=== PATIENT | male | born 1975 | race Caucasian/White ===

== ENCOUNTER 2019-02-09 18:33 | Emergency (ER) | payer OTHER ==
[2019-02-09 18:51] VITALS: RESP 18
[2019-02-09] MEDS ORDERED: DIPH,PERTUS(ACELL)TETVAC-LF 0.5 ML VIAL IM ONE (19:05)
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
[2019-02-09 19:47] LABS: Basophils % (A) 0 %; Eosinophils # (A) 0.1 k/uL (0-0.7); Eosinophils % (A) 1 %; HCT 38.8 % (39.0-53.0); HGB 12.7 gm/dL (13.0-17.5); Lymphocytes % (A) 16 %; MCHC 32.8 g/dL (31.0-37.0); MCV 91.5 fL (80.0-100.0); Monocytes # (A) 0.5 k/uL (0-1.0); Monocytes % (A) 4 %; Neutrophils # (A) 9.6 k/uL (1.3-7.7); Neutrophils % (A) 78 %; Platelet Count 260 k/uL (150-450); RBC 4.24 m/uL (4.30-5.90); RDW 15.9 % (11.5-15.5); WBC 12.4 k/uL (3.8-10.6)
[2019-02-09 19:54] LABS: INR 0.9 (<1.2); Partial Thromboplastin Time 25.4 sec (22.0-30.0); Prothrombin Time 9.9 sec (9.0-12.0)
[2019-02-09 20:03] LABS: ALT 27 U/L (21-72); AST 55 U/L (17-59); African American GFR (CKD) >90 (>60 ml/min/1.73 sqM); Albumin 4.7 g/dL (3.5-5.0); Alkaline Phosphatase 68 U/L (38-126); Anion Gap 14 mmol/L; Blood Urea Nitrogen 10 mg/dL (9-20); Calcium 9.5 mg/dL (8.4-10.2); Carbon Dioxide 18 mmol/L (22-30); Chloride 111 mmol/L (98-107); Glucose 84 mg/dL (74-99); Potassium 4.1 mmol/L (3.5-5.1); Sodium 143 mmol/L (137-145); Total Bilirubin 0.4 mg/dL (0.2-1.3); Total Protein 7.4 g/dL (6.3-8.2)
[2019-02-09 20:13] LABS: Alcohol 138 mg/dL
--- NOTE | 2019-02-09 20:24 | XR ---
EXAMINATION TYPE: XR forearm LT DATE OF EXAM: 02/09/2019 COMPARISON: NONE HISTORY: Pain TECHNIQUE: 2 views FINDINGS: Elbow joint appears intact. Wrist joint appears anatomic. I see no fracture nor dislocation . There is no sign of elbow joint effusion. There is 3 mm calcification anterior to the proximal carp us on the lateral view of the could relate to an old injury. IMPRESSION: Negative left forearm exam.
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
--- NOTE | 2019-02-09 20:25 | XR ---
EXAMINATION TYPE: XR chest 1V portable DATE OF EXAM: 02/09/2019 COMPARISON: NONE HISTORY: Pain TECHNIQUE: Single frontal view of the chest is obtained. FINDINGS: Heart and mediastinum are normal. Lungs are clear. Diaphragm is normal. Bony thorax is int act. There is 5 mm calcified granuloma in the left lower lobe. There is no sign of pneumothorax. IMPRESSION: No active cardiopulmonary disease. Normal heart.
--- NOTE | 2019-02-09 20:26 | XR ---
EXAMINATION TYPE: XR tibia fibula LT DATE OF EXAM: 02/09/2019 COMPARISON: NONE HISTORY: Pain. TECHNIQUE: 4 views FINDINGS: Tibia and fibula appear intact. I see no fracture nor dislocation. IMPRESSION: Negative left tibia and fibula exam.
--- NOTE | 2019-02-09 20:27 | XR ---
EXAMINATION TYPE: XR pelvis AP view DATE OF EXAM: 02/09/2019 COMPARISON: NONE HISTORY: Pain TECHNIQUE: Single view FINDINGS: Pelvic ring is intact. Proximal femurs and hip joints appear normal. Sacroiliac joints appe ar normal. IMPRESSION: Normal pelvis.
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
[2019-02-09] MEDS ORDERED: MORPHINE SULFATE 4 MG/ML SYRINGE IVP STA (21:48)
[2019-02-09] MEDS ORDERED: KETOROLAC 30 MG/ML 1 ML VIAL IVP STA (21:48)
[2019-02-09] MEDS ORDERED: LIDOCAINE 1% INJ 10MG/ML (20 ML MDV) SQ ONE ×2 (21:49→22:54)
[2019-02-09 22:22] LABS: Amphetamine Screen,Urine Not Detected (NotDetected); Barbiturate Screen,Urine Not Detected (NotDetected); Benzodiazepines Screen,Urine Not Detected (NotDetected); Cocaine Screen,Urine Not Detected (NotDetected); Methadone Screen, Urine Not Detected (NotDetected); Opiate Screen,Urine Not Detected (NotDetected); Oxycodone Screen, Urine Not Detected (NotDetected); Phencyclidine Screen,Urine Not Detected (NotDetected); Tricyclic Antidepressant,Urine Not Detected (NotDetected); Urn Cannabinoid Scrn Detected (NotDetected)
[2019-02-09 22:34] LABS: Appearance,Urine Clear (Clear); Bilirubin,Urine Negative (Negative); Blood,Urine Negative (Negative); Color,Urine Light Yellow; Glucose,Urine (UA) Negative (Negative); Ketones,Urine Trace (Negative); Leukocyte Esterase,Urine Negative (Negative); Nitrite,Urine Negative (Negative); Protein,Urine Negative (Negative); Specific Gravity,Urine 1.011 (1.001-1.035); Urobilinogen,Urine <2.0 mg/dL (<2.0)
[2019-02-09 23:19] VITALS: BP 120/79; PULSE 67; TEMP 99.3
== END 2019-02-09 23:48 | disposition home or self-care (01) ==
LOC: EC 18:33
DX: S01.01XA Laceration without foreign body of scalp, initial encounter (principal); S05.42XA Penetrating wound of orbit with or without foreign body, left eye, initial encounter; S01.81XA Laceration without foreign body of other part of head, initial encounter; S50.311A Abrasion of right elbow, initial encounter; S60.512A Abrasion of left hand, initial encounter; S60.511A Abrasion of right hand, initial encounter; S80.211A Abrasion, right knee, initial encounter; S80.812A Abrasion, left lower leg, initial encounter; F17.200 Nicotine dependence, unspecified, uncomplicated; Z53.8 Procedure and treatment not carried out for other reasons; V19.9XXA Pedal cyclist (driver) (passenger) injured in unspecified traffic accident, initial encounter
CPT/HCPCS: 36415; 86900; 86901; 80053; 84484; 85025; 85610; 85730; 86850; 81003; 80306; 80320; 72170; 73090; 73590; 73562; 71045; 72125; 70486; 70450; 71260; 74177; 99284; 12001; 12013; 96374; 96375; J2270; J2001; J1885; Q9967

== ENCOUNTER 2022-09-07 11:46 | Emergency (ER) | payer OTHER ==
[2022-09-07 11:50] VITALS: TEMP 97.8
--- NOTE | 2022-09-07 13:27 | ED ---
Eye Problem HPI - General Chief complaint: Eye Problems Stated complaint: vision issues Time Seen by Provider: 09/07/22 12:50 Source: patient, family Mode of arrival: ambulatory - History of Present Illness Initial comments: 37-year-old male with a history of smoking occasionally EtOH use appendectomy in the past who presents with complaints of right eye problems. He states he started about a month ago with a 10.0 central vision loss in his right eye he states this is not progress where he really can't see out of his right eye. He does state it onset he had a pinpoint central vision loss he still has that right now he also states he has a white haziness to the rest of his right eye nothing out of his left eye. He had some lightheadedness and dizziness when he stands up he thinks secondary to trying to accommodate for visual loss he states he feels like there may be some pressure behind his eye no overt headache no fevers chills nausea vomiting sweats no palpitations - Related Data Previous Rx's Medication Instructions Recorded Cephalexin [Keflex] 500 mg PO Q12HR #20 cap 02/09/19 HYDROcodone/APAP 5-325MG [[place] 1 tab PO Q6HR PRN #12 tab 02/09/19 5-325] Ibuprofen [Motrin] 600 mg PO Q8HR PRN #24 tab 02/09/19 Allergies Allergy/AdvReac Type Severity Reaction Status Date / Time No Known Allergies Allergy Verified 09/07/22 11:50 Review of Systems ROS Statement: Those systems with pertinent positive or pertinent negative responses have been documented in the HPI. ROS Other: All systems not noted in ROS Statement are negative. Past Medical History Past Medical History: No Reported History History of Any Multi-Drug Resistant Organisms: None Reported Past Surgical History: Appendectomy Past Psychological History: No Psychological Hx Reported Smoking Status: Current every day smoker Past Alcohol Use History: Occasional Past Drug Use History: Marijuana General Exam - General Exam Comments Initial Comments: This is a well-developed well-nourished awake alert oriented 4 male General appearance: alert, in no apparent distress Head exam: Present: atraumatic, normocephalic, normal inspection Eye exam: Present: normal appearance, PERRL, EOMI, other (Poorly visualized eyegrounds) Pupils: Present: normal accommodation ENT exam: Present: normal exam, mucous membranes moist Neck exam: Present: normal inspection, full ROM, other (No stridor JVD or bruits). Absent: tenderness, meningismus, lymphadenopathy Respiratory exam: Present: normal lung sounds bilaterally. Absent: respiratory distress, wheezes, rales, rhonchi, stridor Cardiovascular Exam: Present: regular rate, normal rhythm, normal heart sounds. Absent: systolic murmur, diastolic murmur, rubs, gallop, clicks GI/Abdominal exam: Present: soft, normal bowel sounds. Absent: distended, tenderness, guarding, rebound, rigid Extremities exam: Present: normal inspection, full ROM, normal capillary refill. Absent: tenderness, pedal edema, joint swelling, calf tenderness Back exam: Present: normal inspection Neurological exam: Present: alert, oriented X3, CN II-XII intact, motor sensory deficit (Right eye vision diminished right eye) Psychiatric exam: Present: normal affect, normal mood Skin exam: Present: warm, dry, intact, normal color. Absent: rash Course Vital Signs 09/07/22 11:47 Temperature 97.8 F Pulse Rate 70 Respiratory 16 Rate Blood Pressure 146/92 O2 Sat by Pulse 99 Oximetry Procedures - Procedures Initial comment: Intraocular pressure with [place] right eye is 29 left eye 23 - Smoking Cessation Time Spent Discussing Smoking Cessation w/Patient (Minutes): 3 Medical Decision Making - Medical Decision Making I did discuss findings with the patient and his as well as with Dr. Martinez from ophthalmology patient does have mildly elevated intraocular pressures mildly elevated blood pressure he is a smoker he is trying to get off smoking. In this time no further workup is indicated he'll follow-up with Dr. Mccollum this week in the office they will call him for an appointment.Was pt. sent in by a medical professional or institution (, PA, DRILL RIG OPERATOR, urgent care, hospital, or fci...) When possible be specific @ -[No] Did you speak to anyone other than the patient for history (EMS, parent, family, police, friend...)? What history was obtained from this source @ -[No] Did you review nursing and triage notes (agree or disagree)? Why? @ -[I reviewed and agree with nursing and triage notes] Were old charts reviewed (outside hosp., previous admission, EMS record, old EKG, old radiological studies, urgent care reports/EKG's, fci records)? Report findings @ -[No old charts were reviewed] Differential Diagnosis (chest pain, altered mental status, abdominal pain women, abdominal pain men, vaginal bleeding, weakness, fever, dyspnea, syncope, headache, dizziness, GI bleed, back pain, seizure, CVA, palpatations, mental health)? @ -[Visual change, coma, renal detachment, ocular stroke] EKG interpreted by me (3pts min.). @ -[As above] X-rays interpreted by me (1pt min.). @ -[None done] CT interpreted by me (1pt min.). @ -[As above] U/S interpreted by me (1pt. min.). @ -[None done] What testing was considered but not performed or refused? (CT, X-rays, U/S, labs)? Why? @ -[None] What meds were considered but not given or refused? Why? @ -[None] Did you discuss the management of the patient with other professionals (professionals i.e. , PA, DRILL RIG OPERATOR, lab, RT, psych nurse, social sciences chair, svp, teacher, electronic warfare officer, case planner)? Give summary @ -[No] Was smoking cessation discussed for >3mins.? @ -[Yes] Was critical care preformed (if so, how long)? @ -[No] Were there social determinants of health that impacted care today? How? (Homelessness, low income, unemployed, alcoholism, drug addiction, transportation, low edu. Level, literacy, decrease access to med. care, residential, rehab)? @ -[No] Was there de-escalation of care discussed even if they declined (Discuss DNR or withdrawal of care, Hospice)? DNR status @ -[No] What co-morbidities impacted this encounter? (DM, HTN, Smoking, COPD, CAD, Cancer, CVA, ARF, Chemo, Hep., AIDS, mental health diagnosis, sleep apnea, morbid obesity)? @ -[None] Was patient admitted / discharged? Hospital course, mention meds given and ro [place], prescriptions, significant lab abnormalities, going to OR and other pertinent info. @ -[hospital course] Undiagnosed new problem with uncertain prognosis? @ -[No] Drug Therapy requiring intensive monitoring for toxicity (Heparin, Nitro, Insulin, Cardizem)? @ -[No] Were any procedures done? @ -[No] Diagnosis/symptom? @ -[default] acute visual change Acute, or Chronic, or Acute on Chronic? @ -[default] Uncomplicated (without systemic symptoms) or Complicated (systemic symptoms)? @ -[default] Side effects of treatment? @ -[No] Exacerbation, Progression, or Severe Exacerbation? @ -[No] Poses a threat to life or bodily function? How? (Chest pain, [place], [place], pneumonia, PE, COPD, DKA, ARF, appy, cholecystitis, CVA, Diverticulitis, Homicidal, Suicidal, threat to staff... and all critical care pts) @ -[No] - Lab Data Result diagrams: 09/07/22 13:53 09/07/22 13:53 Lab Results 09/07/22 09/07/22 Range/Units 13:53 13:53 WBC 6.8 (3.8-10.6) k/uL RBC 4.42 (4.30-5.90) m/uL Hgb 13.2 (13.0-17.5) gm/dL Hct 39.7 (39.0-53.0) % MCV 89.9 (80.0-100.0) fL MCH 29.9 (25.0-35.0) pg MCHC 33.3 (31.0-37.0) g/dL RDW 13.9 (11.5-15.5) % Plt Count 295 (150-450) k/uL MPV 6.7 Neutrophils % 58 % Lymphocytes % 33 % Monocytes % 4 % Eosinophils % 3 % Basophils % 1 % Neutrophils # 3.9 (1.3-7.7) k/uL Lymphocytes # 2.2 (1.0-4.8) k/uL Monocytes # 0.3 (0-1.0) k/uL Eosinophils # 0.2 (0-0.7) k/uL Basophils # 0.0 (0-0.2) k/uL Sodium 142 (137-145) mmol/L Potassium 4.2 (3.5-5.1) mmol/L Chloride 110 H (98-107) mmol/L Carbon Dioxide 24 (22-30) mmol/L Anion Gap 8 mmol/L BUN 14 (9-20) mg/dL Creatinine 0.67 (0.66-1.25) mg/dL Est GFR (CKD-EPI)AfAm >90 (>60 ml/min/1.73 sqM) Est GFR (CKD-EPI)NonAf >90 (>60 ml/min/1.73 sqM) Glucose 93 (74-99) mg/dL Calcium 9.4 (8.4-10.2) mg/dL Magnesium 2.3 (1.6-2.3) mg/dL Total Bilirubin 0.4 (0.2-1.3) mg/dL AST 44 (17-59) U/L ALT 30 (4-49) U/L Alkaline Phosphatase 60 (38-126) U/L Creatine Kinase 743 H (55-170) U/L C-Reactive Protein <0.5 (<1.0) mg/dL Total Protein 7.9 (6.3-8.2) g/dL Albumin 4.9 (3.5-5.0) g/dL - Radiology Data Interpreted by me: I did interpret the imaging no acute process seen and CAT scans. Disposition Clinical Impression: Vision changes, Visual disturbance Disposition: HOME SELF-CARE Condition: Stable Additional Instructions: Follow-up with Dr. Martinez in his office call for an appointment this week. Consider stopping the smoke increase oral fluids. Diagnosis visual disturbance right eye Is patient prescribed a controlled substance at d/c from ED?: No Referrals: None,Stated [Primary Care Provider] - 1-2 days Decision Date: 09/07/22 Decision Time: 15:28
[2022-09-07 14:00] LABS: Basophils % (A) 1 %; Eosinophils # (A) 0.2 k/uL (0-0.7); Eosinophils % (A) 3 %; HCT 39.7 % (39.0-53.0); HGB 13.2 gm/dL (13.0-17.5); Lymphocytes # (A) 2.2 k/uL (1.0-4.8); Lymphocytes % (A) 33 %; MCH 29.9 pg (25.0-35.0); MCHC 33.3 g/dL (31.0-37.0); MCV 89.9 fL (80.0-100.0); Mean Platelet Volume 6.7; Monocytes # (A) 0.3 k/uL (0-1.0); Monocytes % (A) 4 %; Neutrophils # (A) 3.9 k/uL (1.3-7.7); Neutrophils % (A) 58 %; Platelet Count 295 k/uL (150-450); RBC 4.42 m/uL (4.30-5.90); RDW 13.9 % (11.5-15.5); WBC 6.8 k/uL (3.8-10.6)
[2022-09-07 14:09] LABS: ALT 30 U/L (4-49); AST 44 U/L (17-59); African American GFR (CKD) >90 (>60 ml/min/1.73 sqM); Albumin 4.9 g/dL (3.5-5.0); Alkaline Phosphatase 60 U/L (38-126); Anion Gap 8 mmol/L; Blood Urea Nitrogen 14 mg/dL (9-20); Calcium 9.4 mg/dL (8.4-10.2); Carbon Dioxide 24 mmol/L (22-30); Chloride 110 mmol/L (98-107); Creatine Kinase 743 U/L (55-170); Glucose 93 mg/dL (74-99); Magnesium 2.3 mg/dL (1.6-2.3); Non-African American GFR(CKD) >90 (>60 ml/min/1.73 sqM); Potassium 4.2 mmol/L (3.5-5.1); Sodium 142 mmol/L (137-145); Total Bilirubin 0.4 mg/dL (0.2-1.3); Total Protein 7.9 g/dL (6.3-8.2)
[2022-09-07 14:21] LABS: C Reactive Protein <0.5 mg/dL (<1.0)
--- NOTE | 2022-09-07 14:35 | CT ---
EXAMINATION TYPE: CT brain wo con CT DLP: 1084.6 mGycm, Automated exposure control for dose reduction was used. DATE OF EXAM: 09/07/2022 2:29 PM COMPARISON: CT brain C-spine 02/09/2019. CLINICAL INDICATION:Male, 47 years old with history of Headache, neuro deficits, right eye blindness TECHNIQUE: Brain: Multiple axial CT images of the brain were obtained without IV contrast. Coronal and sagittal reformats reviewed. FINDINGS: Brain: Extra-axial spaces: No abnormal extra-axial fluid collections. Ventricular system: Within normal limits Cerebral parenchyma: No acute intraparenchymal hemorrhage or mass effect. The chau-white junction is well differentiated. Cerebellum: Unremarkable. Mass effect: No evidence of midline shift. Intracranial vasculature: unremarkable Soft tissues: Normal. Calvarium/osseous structures: No depressed skull fracture. Paranasal sinuses and mastoid air cells: Mild scattered paranasal sinus disease. The mastoid air cell s are clear. Visualized orbits: Orbital contents are intact. IMPRESSION: 1. No acute intracranial process. 2. Mild paranasal sinus disease.
--- NOTE | 2022-09-07 14:39 | CT ---
EXAMINATION TYPE: CT angio head neck CT DLP: 499.4 mGycm, Automated exposure control for dose reduction was used. DATE OF EXAM: 09/07/2022 2:30 PM COMPARISON: CT brain same date.. CLINICAL INDICATION:Male, 47 years old with history of Neuro deficit, acute, stroke suspected; PHH, r ight eye visual changes TECHNIQUE: Axially acquired helical CT angiogram of the head and neck was obtained with contrast util izing 65 mL of Isovue-370 administered intravenously. Axial images are supplemented with 3D reconstru ctions which were post-processed at an independent workstation. NASCET criteria used. FINDINGS: CTA HEAD: No evidence of acute intracranial hemorrhage, mass effect, or midline shift. The ventricles, sulci, a nd cisterns are unremarkable. The visualized portions of the internal carotid arteries, middle cerebral arteries, anterior cerebral arteries, and posterior cerebral arteries are patent. The basilar and vertebral arteries are patent. CTA NECK: Right Carotid System: The common carotid artery and external carotid artery are patent. The carotid bifurcation demonstrate s no evidence of hemodynamically significant stenosis. The remaining portions of the internal carotid artery demonstrate normal size without significant narrowing. Left Carotid System: The common carotid artery and external carotid artery are patent. The carotid bifurcation demonstrate s no evidence of hemodynamically significant stenosis. The remaining portions of the internal carotid artery demonstrate normal size without significant narrowing. Vertebral arteries are patent without evidence hemodynamically significant stenosis. There is a three-vessel aortic arch. The origins of the great vessels are patent. No evidence of hemo dynamically significant stenosis. IMPRESSION: 1. No evidence of dissection of the cervical internal carotid arteries or vertebral arteries or any e vidence of significant stenosis at the carotid bifurcations. 2. No evidence of high-grade stenosis or intracranial aneurysm.
[2022-09-07 16:01] VITALS: BP 120/83; PULSE 72; RESP 15
== END 2022-09-07 16:01 | disposition home or self-care (01) ==
LOC: EC 11:46
DX: H53.9 Unspecified visual disturbance (principal); F17.200 Nicotine dependence, unspecified, uncomplicated; F12.90 Cannabis use, unspecified, uncomplicated
CPT/HCPCS: 36415; 93005; 80053; 82550; 83735; 85025; 86140; 70496; 70450; 70498; 99284; Q9967